=== PATIENT | male | born 1990 | race Caucasian/White ===

== ENCOUNTER 2017-01-22 17:08 | Emergency (ER) | payer MEDICAID ==
--- NOTE | 2017-01-22 17:59 | ED Physician Documentation ---
PD HPI SKIN - Stated complaint Stated Complaint: RT FINGER SWELL/PX - Chief complaint Chief Complaint: Ext Problem - History obtained from History obtained from: Patient - History of Present Illness Timing - onset: How many days ago (2) Timing - duration: Days (2) Timing - details: Gradual onset, Still present Location: RUE (index finger sore/abrasion with now redness and swelling for 2 days. No drainage.) Quality / character: Painful, Burning, Discolored (red), Draining (mild) Associated symptoms: No: Fever, Myalgias, Joint pain Contributing factors: No: Insect bite /sting Similar symptoms before: Has not had sx before Recently seen: Not recently seen Review of Systems Constitutional: denies: Fever, Chills, Myalgias Throat: denies: Oral lesions / sores, Sore throat Skin: reports: Lesions Neurologic: denies: Focal weakness, Numbness PD PAST MEDICAL HISTORY - Past Medical History Endocrine/Autoimmune: None - Present Medications Home Medications: Ambulatory Orders Medication Instructions Recorded Confirmed Chlorhexidine Gluconate [Hibiclens] 10 ml TP DAILY #473 ml 01/22/17 HYDROcod/ACETAM 5/325 [[place] 5/325] 1 tab PO Q6H PRN #15 tablet 01/22/17 Mupirocin 1 applic TP TID #15 oint...g. 01/22/17 Sulfamethox/Trimeth 800/160 1 each PO BID #14 tablet 01/22/17 [Bactrim Ds 800/160] - Allergies Allergies/Adverse Reactions: Allergies Allergy/AdvReac Type Severity Reaction Status Date / Time No Known Drug Allergies Allergy Verified 01/22/17 17:23 PD ED PE NORMAL - Vitals Vital signs reviewed: Yes - General General: Alert and oriented X 3, No acute distress, Well developed/nourished - HEENT HEENT: Pharynx benign - Neck Neck: Supple, no meningeal sign, No adenopathy - Derm Derm: Normal color, Warm and dry - Extremities Extremities: Other (right index finger with mid finger dorsal skin redness and mild weeping. Not around nailbed. Not vesicular.) - Neuro Neuro: No motor deficit, No sensory deficit Results - Vitals Vitals: Oxygen O2 Source Room air PD MEDICAL DECISION MAKING - ED course Complexity details: considered differential (presume skin infection in superficial wound. Does not have clustered/vesicular pattern to suggest herpetic. ), d/w patient Departure - Departure Disposition: 01 Home, Self Care Clinical Impression: Finger infection Condition: Stable Record reviewed to determine appropriate education?: Yes Instructions: ED Staph Infec Abx Tx Only Follow-Up: Naheed Parmar PA [Primary Care Provider] - Prescriptions: Sulfamethox/Trimeth 800/160 [Bactrim Ds 800/160] 1 each PO BID #14 tablet Chlorhexidine Gluconate [Hibiclens] 10 ml TP DAILY #473 ml Mupirocin 1 applic TP TID #15 oint...g. HYDROcod/ACETAM 5/325 [[place] 5/325] 1 tab PO Q6H PRN #15 tablet PRN Reason: Pain Comments: Cleanse infection areas twice daily with soap and water. You can soak the finger twice daily as well. Apply antibiotic ointment mupirocin to the areas. Bactrim twice daily for the next week for the infections. I think the multiple skin infections on the arms that are developing may be satelliting from the face and so treat that as well. This likely represents a higher amount of germs on your skin generally and so use the chlorhexidine body wash from head to toe and it can be used as a body wash in the shower with a sponge or loofa. Recheck if the infections not improving over the next couple of days. Return sooner if worse. Tylenol or ibuprofen if needed for pain and add hydrocodone if needed. Discharge Date/Time: 01/22/17 19:24
[2017-01-22] MEDS ORDERED: HYDROcod/ACETAM 5/325 MG TABLET PO STA (18:14)
[2017-01-22] MEDS ORDERED: SULFAMETH/TRIMETH DS 800/160 MG TABLET PO STA (18:14)
[2017-01-22] MEDS ORDERED: HYDROcod/ACETAM 5/325 MG TABLET ONE (18:26)
[2017-01-22] MEDS ORDERED: SULFAMETH/TRIMETH DS 800/160 MG TABLET PO ONE (18:26)
[2017-01-22] MEDS ORDERED: TETANUS/DIPHTHERIA/PERTUSSIS 0.5 ML SYRINGE IM ONE ×2 (18:32→18:36)
[2017-01-22 19:25] VITALS: BP 123/64
== END 2017-01-22 19:24 | disposition home or self-care (01) ==
LOC: ED 17:08
DX: L08.9 Local infection of the skin and subcutaneous tissue, unspecified (principal); Z23 Encounter for immunization
CPT/HCPCS: 90471; 90715; 99283; A9270

== ENCOUNTER 2017-07-11 21:05 | Outpatient (CLI) | payer MEDICAID | END 2017-07-11 21:06 | disposition short-term general hospital (02) | LOC: EMS 21:05 | PROVIDERS: ATTEND Surgery | DX: S09.90XA Unspecified injury of head, initial encounter (principal); S29.9XXA Unspecified injury of thorax, initial encounter; V59.9XXA Occupant (driver) (passenger) of pick-up truck or van injured in unspecified traffic accident, initial encounter; Y92.410 Unspecified street and highway as the place of occurrence of the external cause | CPT/HCPCS: A0425; A0427 ==

== ENCOUNTER 2023-01-19 22:38 | Outpatient (CLI) | payer MEDICAID | END 2023-01-19 22:39 | disposition critical access hospital (66) | LOC: EMS 22:38 | DX: T65.91XA Toxic effect of unspecified substance, accidental (unintentional), initial encounter (principal); R09.2 Respiratory arrest | CPT/HCPCS: A0425; A0427; A0999 ==

== ENCOUNTER 2023-01-19 23:08 | Emergency (ER) | payer MEDICAID ==
--- NOTE | 2023-01-19 23:47 | ED Physician Documentation ---
PD HPI ALTERED MENTAL STATUS - Stated complaint Stated Complaint: OD/CPR - Chief complaint Chief Complaint: Resp - History obtained from History obtained from: Patient, Friend, EMS - Additional information Additional information: SALLY. HPI from EMS, patient, and friend ( in ED at bedside). Patient is asymptomatic on my evaluation. He says that tonight he was at home preparing dinner when he and another friend went to another area of the property to snort a powdered substance his friend had reportedly found in a baggie at a bus stop. Patient says he and his friend thought they were snorting cocaine, although it is unclear why they would conclude that a random, powdered substance found at a bus stop would specifically be cocaine. Patient says he remembers snorting the substance, feeling strange and , shortly thereafter, his next memory is waking up with EMS transporting him to ED by ambulance. Patient says "I've never done anything like this before"; in specifying, he indicates he has used drugs before, but that he has never used a drug unless he knew specifically what type of drug it was. Patient's friend (not the one who introduced the drug, but his female friend (in ED at bedside)) says she was in another area of the property, was alerted to patient's AMS, came to find patient was unconscious, unresponsive, lips were blue. EMS arrived and administered 2mg IV narcan and patient rapidly awoke and swiftly returned to baseline mental status. Patient denies SI. Review of Systems Cardiac: reports: Reviewed and negative Respiratory: reports: Reviewed and negative GI: reports: Reviewed and negative Neurologic: reports: LOC. denies: Generalized weakness, Focal weakness, Numbness, Headache PD PAST MEDICAL HISTORY - Past Medical History Endocrine/Autoimmune: None - Past Surgical History Past Surgical History: No - Present Medications Home Medications: Ambulatory Orders Medication Instructions Recorded Confirmed No Known Home Medications 01/19/23 01/19/23 - Allergies Allergies/Adverse Reactions: Allergies Allergy/AdvReac Type Severity Reaction Status Date / Time No Known Drug Allergies Allergy Verified 01/19/23 23:17 - Social History Does the pt smoke?: Yes Smoking Status: Current every day smoker Does the pt drink ETOH?: No Does the pt have substance abuse?: No - Immunizations Immunizations are current?: Yes - POLST Patient has POLST: No PD ED PE NORMAL - Vitals Vital signs reviewed: Yes - General General: Alert and oriented X 3, No acute distress, Well developed/nourished - HEENT HEENT: Atraumatic, PERRL, EOMI, Moist mucous membranes - Neck Neck: Supple, no meningeal sign, No bony TTP - Cardiac Cardiac: RRR, No murmur, No gallop, No rub - Respiratory Respiratory: No respiratory distress, Clear bilaterally - Abdomen Abdomen: Soft, Non tender - Neuro Neuro: Alert and oriented X 3, senior online marketing manager 2-12 intact, No motor deficit, No sensory deficit, Normal speech Eye Opening: Spontaneous Motor: Obeys Commands Verbal: Oriented GCS Score: 15 - Psych Psych: Normal mood, Normal affect Results - Vitals Vitals: Oxygen O2 Source Room air - Labs Labs: Laboratory Tests 01/20/23 01/20/23 01:20 01:20 WBC 9.5 RBC 4.76 Hgb 15.4 Hct 44.0 MCV 92.4 MCH 32.4 H MCHC 35.0 RDW 12.2 Plt Count 197 MPV 9.0 Neut # (Auto) 7.5 H Lymph # (Auto) 1.0 L [place] # (Auto) 1.0 Eos # (Auto) 0.0 Baso # (Auto) 0.0 Absolute Nucleated RBC 0.00 Nucleated RBC % 0.0 Sodium 136 Potassium 3.4 L Chloride 101 Carbon Dioxide 24 Anion Gap 11.0 BUN 9 Creatinine 0.9 Estimated GFR (MDRD) 97 Glucose 112 H Calcium 9.1 Total Bilirubin 0.6 AST 41 ALT 31 Alkaline Phosphatase 79 Total Protein 7.3 Albumin 4.3 Globulin 3.0 Albumin/Globulin Ratio 1.4 Lipase 34 PD Medical Decision Making - ED course Complexity details: reviewed results, re-evaluated patient, considered differential, d/w patient ED course: no significant / notable abnormalities on CBC, ER abdominal panel. UDS not performed, as this would be highly unlikely to supervisor records change. Patient is up- front about snorting unknown substance today, the LOC and turning blue along with the rapid and complete response to narcan all are highly suggestive of opiate/opioid overdose. Furthermore, a positive opiate UDS would confirm, but a negative opiate UDS would not rule out all opitates/opioids (such as arrington- fentanyl, car-fentanyl). Of course I instructed patient to avoid any and all non-prescription drugs including, and particularly, illicit ("street") drugs. 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 He is given a narcan take-home kit to go, and given one more IV dose of 2mg narcan prior to discharge: he is becoming slightly drowsy, which is understandable for the hour, but also subtly slurred speech. Mother is now in ED at bedside and she says she can watch patient overnight and check on him every 1-2 hours. Return precautions discussed. Departure - Departure Disposition: 01 Home, Self Care Clinical Impression: Opiate or related narcotic overdose Qualifiers: Encounter type: initial encounter Injury intent: accidental or unintentional Qualified Code(s): T40.601A - Poisoning by unspecified narcotics, accidental (unintentional), initial encounter Condition: Good Instructions: Naloxone nasal spray, ED Overdose Accidental Comments: There were no concerning or diagnostic findings on beni's blood test. As we discussed, the urine drug screen was not performed because it is overwhelmingly likely that the substance you use beni was an opiate or opioid (narcotic medication); I am basing this presumption on your description of symptoms, and your rapid and definitive improvement with Narcan. Narcan is a medication that rapidly reverses opiate/opioid medication/drugs. Forms: PCP List Discharge Date/Time: 01/20/23 03:23
[2023-01-20] MEDS ORDERED: SODIUM CHLORIDE 0.9% 1,000 ML IV STA (00:04)
[2023-01-20 01:27] LABS: BASOPHILS % (AUTO) 0.2 %; EOSINOPHILS % (AUTO) 0.1 %; HGB - HEMOGLOBIN 15.4 g/dL (14.0-18.0); LYMPHOCYTES % (AUTO) 10.4 %; MEAN CORPUSCULAR HEMOGLOBIN 32.4 pg (27.0-31.0); MEAN CORPUSCULAR VOLUME 92.4 fL (80.0-94.0); MONOCYTES % (AUTO) 10.3 %; NEUTROPHILS # (AUTO) 7.5 10^3/uL (1.5-6.6); NEUTROPHILS % (AUTO) 78.6 %; PLT - PLATELET COUNT 197 10^3/uL (130-450); RED BLOOD COUNT 4.76 10^6/uL (4.70-6.10); RED CELL DISTRIBUTION WIDTH 12.2 % (12.0-15.0); WHITE BLOOD COUNT 9.5 x10^3/uL (4.8-10.8)
[2023-01-20 01:36] LABS: ALBUMIN 4.3 g/dL (3.2-5.5); ALBUMIN/GLOBULIN RATIO 1.4 (1.0-2.2); BILIRUBIN,TOTAL 0.6 mg/dL (0.2-1.0); CALCIUM 9.1 mg/dL (8.5-10.3); CREATININE 0.9 mg/dL (0.6-1.3); POTASSIUM 3.4 mmol/L (3.5-4.5); TOTAL PROTEIN 7.3 g/dL (6.4-8.9)
[2023-01-20] MEDS ORDERED: NALOXONE 0.4 MG/ML VIAL IVP STA (02:44)
[2023-01-20] MEDS ORDERED: NALOXONE HCL NASAL SPRAY KIT NAS STA (02:47)
[2023-01-20 03:26] VITALS: BP 158/92; O2SAT 93
== END 2023-01-20 03:23 | disposition home or self-care (01) ==
LOC: EDUNIT# → ED 23:08
DX: T40.601A Poisoning by unspecified narcotics, accidental (unintentional), initial encounter (principal); F17.200 Nicotine dependence, unspecified, uncomplicated
CPT/HCPCS: 36415; 80053; 83690; 85025; 96374; 99283; 99284; G2215

== ENCOUNTER 2023-04-06 07:37 | Emergency (ER) | payer MEDICAID ==
--- NOTE | 2023-04-06 08:25 | XRAY Report ---
PROCEDURE: Ankle 3 View BILAT INDICATIONS: injury/pain TECHNIQUE: 3 views of the ankle were acquired. COMPARISON: None. FINDINGS: Bones: Right ankle: Right ankle without definite fractures or dislocations. Right ankle mortise is n ormally aligned. No suspicious bony lesions. Left ankle: There is a comminuted, mildly displaced fracture involving the left calcaneus with intra- articular extension to the subtalar joint. Subtle cortical irregularity involving the inferior margin of the anterior process of the talus. Overall, left ankle mortise appears intact. Soft tissues: There is a small tibiotalar and subtalar joint effusion. No right-sided tibiotalar ernesto nt effusion. Achilles tendon appears normal. IMPRESSION: 1. Comminuted, intra-articular fracture of the left calcaneus with extension to the subtalar joint. 2. Possible nondisplaced fracture involving the anterior process of the left talus. 3. Mild soft tissue swelling of the right ankle without definite underlying fracture or dislocation. Reviewed by: Amaury Armstrong MD on 04/06/2023 8:24 AM PST Approved by: Amaury Armstrong MD on 04/06/2023 8:24 AM PST Station ID: [id number]
[2023-04-06] MEDS ORDERED: HYDROmorphone 1 MG/ML CARPUJECT IM STA (09:16)
[2023-04-06 10:26] LABS: BASOPHILS % (AUTO) 0.4 %; EOSINOPHILS % (AUTO) 0.4 %; HCT - HEMATOCRIT 45.9 % (42.0-52.0); HGB - HEMOGLOBIN 15.9 g/dL (14.0-18.0); LYMPHOCYTES # (AUTO) 2.3 10^3/uL (1.5-3.5); LYMPHOCYTES % (AUTO) 21.5 %; MEAN CORPUSCULAR HEMOGLOBIN 31.7 pg (27.0-31.0); MEAN CORPUSCULAR HGB CONC 34.6 g/dL (32.0-36.0); MEAN CORPUSCULAR VOLUME 91.4 fL (80.0-94.0); MEAN PLATELET VOLUME 8.8 fL (7.4-11.4); MONOCYTES # (AUTO) 1.1 10^3/uL (0.0-1.0); MONOCYTES % (AUTO) 10.2 %; NEUTROPHILS # (AUTO) 7.1 10^3/uL (1.5-6.6); NEUTROPHILS % (AUTO) 66.8 %; PLT - PLATELET COUNT 294 10^3/uL (130-450); RED BLOOD COUNT 5.02 10^6/uL (4.70-6.10); RED CELL DISTRIBUTION WIDTH 12.4 % (12.0-15.0); WHITE BLOOD COUNT 10.7 x10^3/uL (4.8-10.8)
[2023-04-06 11:27] VITALS: BP 118/72; O2SAT 98
--- NOTE | 2023-04-06 11:55 | CT Report ---
PROCEDURE: Lower Extremity Bilat W/O INDICATIONS: calcaneus fractures, pain/swelling TECHNIQUE: [address] images of bilateral foot and ankle were obtained without contrast. Coronal a nd sagittal reformats were obtained and reviewed. COMPARISON: None. FINDINGS: Right foot and ankle: Acute comminuted fractures involving posterior medial aspect of right calcaneus is seen with superior and lateral displacement of fractured fragments and up to 5 mm diastases at fracture sites. Age-inde terminate fracture involving first proximal phalangeal shaft is seen with deformity in mid to distal portion. No other fracture or dislocation is seen. There is soft tissue swelling and edema surrounding posterior calcaneal fracture site. Mild soft tiss ue swelling and edema surrounding proximal phalangeal shaft fracture site is also seen. No abnormal s oft tissue calcifications. No gross full-thickness tendon rupture. No soft tissue mass or drainable f luid collection. Left foot and ankle: Severely comminuted fracture involving entire left calcaneus is seen with fracture lines extending to superior and inferior articulating surfaces as well as the subtalar joint space. No definite involve ment of the calcaneocuboid joint is seen. There is superior, inferior, medial and lateral displacemen t of the fractured fragments and up to 5 mm diastases at fracture sites. No other fracture or disloc ation is seen. No suspicious bony lesions. There is significant soft tissue swelling and edema in hindfoot surrounding calcaneal fracture site. No discrete drainable fluid collection or soft tissue mass is seen. No gross full-thickness tendon ru pture. No abnormal soft tissue calcifications are seen. IMPRESSION: 1. Severely comminuted and displaced fracture involving entire left calcaneus as above. Significant s oft tissue swelling and edema surrounding calcaneal fracture site extending to distal lower leg and a long dorsal and lateral aspect of midfoot and forefoot. No other left foot fracture or dislocation is seen. 2. Comminuted and displaced fracture involving posterior medial aspect of right calcaneus. Acute to s ubacute appearing fracture involving right first proximal phalangeal shaft without significant displa cement. Soft tissue swelling and edema surrounding above-mentioned right foot fracture sites. 3. No discrete drainable fluid collection or soft tissue mass. No abnormal soft tissue calcifications . No full-thickness tendon rupture. Reviewed by: Piotr Perry MD on 04/06/2023 11:53 AM PST Approved by: Piotr Perry MD on 04/06/2023 11:53 AM [facility] Station ID: [id number]
[2023-04-06] MEDS ORDERED: oxyCODONE 5 MG TABLET PO STA (12:22)
--- NOTE | 2023-04-06 12:54 | ED Physician Documentation ---
PD HPI LOWER EXT INJURY - Stated complaint Stated Complaint: BILAT ANKLE INJ - Chief complaint Chief Complaint: Trauma Ext - History obtained from History obtained from: Patient - Additional information Additional information: Patient comes to the emergency department chief complaint of bilateral foot and ankle pain after jumping off of a second story balcony last night while intoxicated. He states that it is approximately a 10 foot drop onto tile surface. He states that he immediately had pain, especially on the left side and has not been able to walk since because of the pain. He noticed this morning that his left foot and ankle were quite swollen. He states that the pain kept him awake for most of the night and he could not sleep. The patient denies any knee or low back pain that is new. He states he has some mild chronic low back pain which does not feel any different than usual. He states he has not had any further alcohol since last night. PD PAST MEDICAL HISTORY - Past Medical History Past Medical History: No Endocrine/Autoimmune: None - Past Surgical History Past Surgical History: No - Present Medications Home Medications: Ambulatory Orders Medication Instructions Recorded Confirmed Oxycodone HCl/Acetaminophen 1 - 2 each PO Q4H PRN #30 tab 04/06/23 [Oxycodone-Acetaminophen 5-325] - Allergies Allergies/Adverse Reactions: Allergies Allergy/AdvReac Type Severity Reaction Status Date / Time No Known Drug Allergies Allergy Verified 04/06/23 07:55 - Social History Does the pt smoke?: Yes Smoking Status: Current every day smoker Does the pt drink ETOH?: Yes Does the pt have substance abuse?: No - Immunizations Immunizations are current?: Yes - POLST Patient has POLST: No PD ED PE NORMAL - Vitals Vital signs reviewed: Yes - General General: Alert and oriented X 3, No acute distress, Well developed/nourished - HEENT HEENT: Atraumatic, PERRL, EOMI, Moist mucous membranes - Neck Neck: Supple, no meningeal sign - Cardiac Cardiac: Strong equal pulses - Respiratory Respiratory: No respiratory distress - Back Back: No spinal TTP - Derm Derm: Warm and dry, No rash, Other (Contusion around the left heel, wrapping around the ankle to the dorsum of the foot.) - Extremities Extremities: No deformity, Other (Tenderness over bilateral calcanei. Minimal swelling on the right but notable swelling with contusion as above on the left. Moderate decrease of range of motion of the ankle secondary to pain down the feet. No obvious deformity of either foot.) - Neuro Neuro: Alert and oriented X 3 - Psych Psych: Normal mood, Normal affect Results - Vitals Vitals: Oxygen O2 Source Room air - Labs Labs: Laboratory Tests 04/06/23 10:18 WBC 10.7 RBC 5.02 Hgb 15.9 Hct 45.9 MCV 91.4 MCH 31.7 H MCHC 34.6 RDW 12.4 Plt Count 294 MPV 8.8 Neut # (Auto) 7.1 H Lymph # (Auto) 2.3 [place] # (Auto) 1.1 H Eos # (Auto) 0.0 Baso # (Auto) 0.0 Absolute Nucleated RBC 0.00 Nucleated RBC % 0.0 - Rads (name of study) Bilateral ankle x-ray series Relevant Findings:: Final report received, See rad report (Left calcaneus fracture otherwise negative) CT scan bilateral distal lower extremities Relevant Findings:: Final report received, See rad report (Bilateral calcaneus fractures, comminuted on the left.) Procedures - Splint (location) - Minor Bilateral LE Splint applied by: Physician, Tech Type of splint: Short leg, Posterior, Stirrup Other: Patient tolerated well, No complications, Neurovascular intact PD Medical Decision Making - ED course Complexity details: reviewed results, re-evaluated patient, considered differential, d/w patient ED course: The patient was worked up with imaging of the ankles from triage which showed an obvious left calcaneus fracture but no fracture on the right. Given the patient's history and the pain that he is also experiencing on the right, I was concerned for possible fracture on the right as well. I did order CT scan of the patient's bilateral distal lower extremities and this did demonstrate a remedios caneus fracture on the right as well, albeit not as severe as on the left. The patient did not have any tenderness about his knees or his lumbar spine, and at this point he was sober, and so I did not order imaging of those areas. I discussed the case with Dr. Emanuel, our on-call orthopedist and he stated that we would not be able to perform operative repair of the calcaneus fractures here and recommended that the case be reviewed with orthopedics at [facility]. I sent the images to , and was able to speak with their orthopedist, who stated the pt could be seen as an outpatient, but would need to be seen soon. [facility] stated they would send the pt's information to the clinic to be scheduled for an appointment. I have discussed the plan with the pt, who is agreeable. Bilateral splints have been placed. Friends are coming to pick the pt up, and his sister is going to potato picker a wheelchair for him at the [facility]. I have prescribed analgesia for the pt. We have discussed the usual indications for return. Departure - Departure Disposition: 01 Home, Self Care Clinical Impression: Bilateral calcaneal fractures Qualifiers: Encounter type: initial encounter Fracture type: closed Qualified Code(s): S92.001A - Unspecified fracture of right calcaneus, initial encounter for closed fracture Condition: Stable Instructions: ED Fx Foot Prescriptions: Oxycodone HCl/Acetaminophen [Oxycodone-Acetaminophen 5-325] 1 - 2 each PO Q4H PRN #30 tab PRN Reason: Pain 5-7 Comments: Unfortunately, your CT scan shows that you have broken both of your heel bones. The left side is much worse than the right but you need to keep weight off of both until you are cleared to bear weight again by orthopedics. Your case has been discussed with our orthopedist here at [facility] , and he says your fractures are too complex to be managed here. As such, I did discuss with your case with Dr. Yoel Mcdonnell at [facility], an dairy management specialist. He says that they would like to see you this week in their foot and ankle clinic down in [place] to get a look at your feet/fractures and come up with a surgical plan. He has said the one on the left will definitely need surgery and the one on the right possibly. They will be calling you with an appointment; however, you may also call to follow-up on this if you do not hear from them by the end of the day tomorrow. [facility] [phone]. The address [facility] is [address] [place] [address], [id number]. In the meantime, you should get around using a wheelchair. You should prop your feet up whenever possible and try to avoid letting them hang down. A prescript ion for oxycodone has been electronically transmitted to the [facility] pharmacy and [place] for pain control for you. You may pick this up this afternoon. Forms: PCP List Discharge Date/Time: 04/06/23 13:44
== END 2023-04-06 13:44 | disposition home or self-care (01) ==
LOC: ED 07:37
DX: S92.002A Unspecified fracture of left calcaneus, initial encounter for closed fracture (principal); S92.001A Unspecified fracture of right calcaneus, initial encounter for closed fracture; X58.XXXA Exposure to other specified factors, initial encounter; Y93.39 Activity, other involving climbing, rappelling and jumping off; Y92.89 Other specified places as the place of occurrence of the external cause; F17.200 Nicotine dependence, unspecified, uncomplicated
CPT/HCPCS: 36415; 73610; 73700; 85025; 96372; 99283; 99284; A9270; J1170